=== PATIENT | male | born 1980 | race Hispanic/Latino ===

== ENCOUNTER 2018-12-15 18:38 | Emergency (ER) | payer OTHER ==
[2018-12-15] MEDS ORDERED: ONDANSETRON 4 MG/2 ML VIAL ONE ×2 (19:59→21:40)
[2018-12-15] MEDS ORDERED: FENTANYL CITR 100 MCG/2 ML ONE (19:59)
[2018-12-15] MEDS ORDERED: PANTOPRAZOLE 40 MG INJ ONE (20:00)
[2018-12-15] MEDS ORDERED: NA CHLORIDE 0.9% 1,000 ML ONE ×3 (20:00→22:41)
[2018-12-15] MEDS ORDERED: FAMOTIDINE 20 MG/2 ML VIAL IV ONE (20:00)
--- NOTE | 2018-12-15 20:24 | RAD REPORT ---
EXAM DESCRIPTION: Dariana Single View12/15/2018 8:20 pm CLINICAL HISTORY: Abdominal pain COMPARISON: none FINDINGS: The lungs appear clear of acute infiltrate. The heart is normal size IMPRESSION: No acute abnormalities displayed
[2018-12-15 20:28] LABS: Absolute Lymphocytes (CBC) 1.3 K/uL (0.7-4.9); Lymphocytes % 5.9 % (15.3-44.8)
[2018-12-15 20:29] LABS: Protime INR 0.84
[2018-12-15 20:30] LABS: Basophils % 0.6 % (0-1.3); Hematocrit 50.3 % (39.6-49.0); MPV 8.7 fL (7.6-11.3); RBC Red Blood Cell Count 5.54 M/uL (4.33-5.43)
[2018-12-15 20:47] LABS: Urine Blood 1+ (NEG); Urine Glucose NEGATIVE (NEG); Urine Protein NEGATIVE (NEG); Urine Specific Gravity >1.030 (1.005-1.030); Urine pH 5.5 (5.0-7.0)
[2018-12-15 20:47] LABS: Barbiturates NEGATIVE (NEGATIVE); Benzodiazepines NEGATIVE (NEGATIVE); Cocaine NEGATIVE (NEGATIVE); METHAMPHETAM NEGATIVE (NEGATIVE); Methadone NEGATIVE (NEGATIVE); Opiates NEGATIVE (NEGATIVE); Phencyclidine NEGATIVE (NEGATIVE); THC Cannibis NEGATIVE (NEGATIVE)
[2018-12-15 20:58] LABS: ALT/SGPT 35 U/L (12-78); AST/SGOT 10 U/L (15-37); Albumin 4.4 g/dL (3.4-5.0); Alkaline Phosphatase 170 U/L (45-117); BUN Blood Urea Nitrogen 21 mg/dL (7-18); Bilirubin Direct < 0.1 mg/dL (0-0.2); Bilirubin Total 0.5 mg/dL (0.2-1.0); Lipase 1995 U/L (73-393); Magnesium 2.1 mg/dL (1.8-2.4); NT PRO-BNP 169 pg/mL (<125); Potassium 5.2 mmol/L (3.5-5.1); Protein, Total 9.5 g/dL (6.4-8.2); Sodium Level 130 mmol/L (136-145); Troponin (Emerg Dept Use Only) < 0.02 ng/mL (0.0-0.045)
[2018-12-15 21:00] LABS: Bicarbonate 9 mmol/L (21-32)
[2018-12-15 21:01] LABS: Glucose Level 414 mg/dL (74-106)
[2018-12-15 21:11] LABS: Blood Morphology Comment NOT SEEN (NOT SEEN); Platelet Estimate ADEQ
[2018-12-15 21:38] LABS: Arterial Blood Carboxyhemoglob 1.3 % (0-1.5); Blood Gas Oxyhemoglobin 94.2 % (94-97); Blood O2 Saturation 96.9 % (92-98.5)
[2018-12-15] MEDS ORDERED: MORPHINE 4 MG/ML SYR ONE ×2 (21:40→23:27)
[2018-12-15] MEDS ORDERED: NA CHLORIDE 0.9% 100 ML IV ONE ×2 (22:41→23:07)
[2018-12-15] MEDS ORDERED: INSULIN -REGULAR HUMAN 50 UNIT/0.5 ML ML ONE (22:41)
[2018-12-15] MEDS ORDERED: CEFTRIAXONE/SWI 1gm 1 GM/10 ML SYR ONE ×2 (23:06→23:07)
--- NOTE | 2018-12-15 23:53 | ER ---
Nurse's Notes [facility] Name: Royce Harding Age: 37 yrs Sex: Male : 1980 Arrival Date: 12/15/2018 Time: 18:41 Bed 26 Private MD: Diagnosis: Acute abdominal pain;Acute vomiting;DKA;Leukocytosis Presentation: 12/15 18:58 Presenting complaint: Patient states: generalized abd cramping, nausea, vomiting, and aa5 diarrhea that began last night. Transition of care: patient was not received from another setting of care. Onset of symptoms was December 14, 2018. Risk Assessment: Do you want to hurt yourself or someone else? Patient reports no desire to harm self or others. Care prior to arrival: None. 18:58 Acuity: SUSAN 2 aa5 18:58 Method Of Arrival: Wheelchair aa5 12/16 00:29 Initial Sepsis Screen: Does the patient meet any 2 criteria? RR > 20 per min. ch 00:31 Initial Sepsis Screen: Does the patient have a suspected source of infection?. ch Historical: - Allergies: 12/15 19:00 No Known Allergies; aa5 - PMHx: 19:00 Diabetes - IDDM; Wound to left foot; aa5 - PSHx: 19:00 toe amputation; aa5 - Immunization history:: Adult Immunizations unknown. - Social history:: Smoking status: Patient uses tobacco products, smokes one-half pack cigarettes per day. - Ebola Screening: : No symptoms or risks identified at this time. - Family history:: not pertinent. - Hospitalizations: : No recent hospitalization is reported. Screenin:28 Abuse screen: Denies threats or abuse. Denies injuries from another. Nutritional ch screening: No deficits noted. Tuberculosis screening: No symptoms or risk factors identified. Fall Risk None identified. Assessment: 19:28 General: Appears in no apparent distress. uncomfortable, ill, Behavior is cooperative, ch anxious, fussy. Pain: Complains of pain in back, abdomen and right foot Pain currently is 10 out of 10 on a pain scale. Neuro: No deficits noted. Respiratory: Airway is patent Respiratory effort is even, unlabored, Breath sounds are clear bilaterally. GI: Abdomen is flat, non-distended, Bowel sounds present X 4 quads. Abd is soft X 4 quads Abdomen is tender to palpation X 4 quads. Reports lower abdominal pain, upper abdominal pain, diarrhea, nausea, vomiting. : No signs and/or symptoms were reported regarding the genitourinary system. Derm: Skin is jaundiced. Musculoskeletal: No signs and/or symptoms reported regarding the musculoskeletal system. 20:48 Reassessment: Patient appears in no apparent distress at this time. Patient and/or ch family updated on plan of care and expected duration. Pain level reassessed. Patient is alert, oriented x 3, equal unlabored respirations, skin warm/dry/pink. Patient states symptoms have not improved. 21:43 Reassessment: Patient appears in no apparent distress at this time. Patient and/or ch family updated on plan of care and expected duration. Pain level reassessed. pt medicated per orders. ABG completed, awaiting results. physician notified of pt gap of 26. awaiting further orders after ABG results. Patient states symptoms have not improved. 22:05 Reassessment: Patient appears in no apparent distress at this time. Patient and/or ch family updated on plan of care and expected duration. Pain level reassessed. Patient is alert, oriented x 3, equal unlabored respirations, skin warm/dry/pink. physician aware of ph of 7.13. awaiting orders. 23:08 Reassessment: Patient appears in no apparent distress at this time. pt BGL 418. ch physician notified. pt on insulin drip per physician orders. pt notified of acceptance to [facility]. mom and pt states they do not want to go to [facility]. physician and charge nurse notified, awaiting physician to speak with pt. 23:37 Reassessment: Patient appears in no apparent distress at this time. Patient and/or ch family updated on plan of care and expected duration. Pain level reassessed. Patient is alert, oriented x 3, equal unlabored respirations, skin warm/dry/pink. bgl 373. will re check in 30 min per protocol. pt states he will go to [facility]. awaiting EMS. 23:52 Reassessment: Patient appears in no apparent distress at this time. Patient and/or ch family updated on plan of care and expected duration. Pain level reassessed. physician notified of pt BGL, Insulin rate reduced to 4. pt is asleep in room. Vital Signs: 19:00 BP 162 / 88; Pulse 116; Resp 20 S; Temp 98.9(O); Pulse Ox 99% on R/A; Pain 10/10; aa5 19:28 Pulse 122; Resp 26; Temp 98.5(O); Pulse Ox 99% on R/A; Pain 10/10; ch 19:50 BP 168 / 106; ch 20:48 BP 144 / 93; Pulse 112; Resp 22; Pulse Ox 100% on R/A; Pain 10/10; ch 21:43 BP 164 / 102; Pulse 120; Resp 22; Pulse Ox 97% on R/A; Pain 8/10; ch 23:08 BP 154 / 110; Pulse 114; Resp 22; Pulse Ox 99% on R/A; Pain 8/10; ch ED Course: 18:41 Patient arrived in ED. as 18:58 Arm band placed on. aa5 18:59 Triage completed. aa 19:17 Jazlyn Cerna, RN is Primary Nurse. 19:26 Mitch Reardon MD is Attending Physician. wa 19:28 No apparent distress. Resting quietly. ch 19:28 Patient has correct armband on for positive identification. Placed in gown. Bed in low ch position. Call light in reach. Side rails up X 1. Adult w/ patient. Pulse ox on. NIBP on. Warm blanket given. 19:28 No provider procedures requiring assistance completed. 20:19 XRAY Chest (1 view) In Process Unspecified. EDMS 20:47 Inserted saline lock: 20 gauge in right antecubital area, using aseptic technique. mg2 Blood collected. 22:48 CT Abd/Pelvis - Without Contrast In Process Unspecified. EDMS 0802 00:29 Patient transferred, IV remains in place. ch Administered Medications: 12/15 20:30 Drug: NS 0.9% 1000 ml Route: IV; Rate: 1 bolus; Site: right antecubital; mg2 20:30 Drug: Pepcid 20 mg Route: IVP; Site: right antecubital; mg2 21:21 Follow up: Response: No adverse reaction 20:30 Drug: ProTONIX 40 mg Route: IVP; Site: right antecubital; mg2 21:21 Follow up: Response: No adverse reaction; Pain is decreased 20:30 Drug: Zofran 4 mg Route: IVP; Site: right antecubital; mg2 21:13 Follow up: Response: No adverse reaction ch 21:21 Follow up: Response: No adverse reaction ch 20:30 Drug: fentaNYL (PF) 50 mcg Route: IVP; Site: right antecubital; mg2 21:13 Follow up: Response: No adverse reaction ch 21:45 Drug: morphine 4 mg Route: IVP; Site: right antecubital; mg2 22:34 Follow up: Response: No adverse reaction ch 21:45 Drug: Zofran 4 mg Route: IVP; Site: right antecubital; mg2 22:34 Follow up: Response: No adverse reaction ch 21:46 Drug: NS 0.9% 1000 ml Route: IV; Rate: 1 bolus; Site: right antecubital; mg2 22:45 Drug: Insulin Drip - (Insulin Regular Human 100 units, NS 0.9% 100 ml) {Co-Signature: [facility] (Juanjose Chapman RN).} Route: IV; Rate: 7.5 units/hr; Site: right antecubital; 23:06 Drug: Rocephin - (cefTRIAXone) 2 grams Route: IVPB; Infused Over: 30 mins; Site: right ch antecubital; 23:06 Drug: NS 0.9% 1000 ml Route: IV; Rate: 125 ml/hr; Site: right antecubital; ch 23:38 Drug: morphine 4 mg Route: IVP; Site: right antecubital; ch 23:53 Follow up: Response: No adverse reaction Point of Care Testing: Blood Glucose: 19:05 Blood Glucose: 365 mg/dL; aa5 20:33 Blood Glucose: 370 mg/dL; lt1 12/16 00:23 Blood Glucose: 344 mg/dL; Ranges: Outcome: 12/15 23:53 ER care complete, transfer ordered by . ny 12/16 00:28 Transferred by ground EMS to [facility], Transfer form completed. X-rays sent w/ patient. Condition: stable Instructed on the need for admit. 00:31 Patient left the ED. ch Signatures: Dispatcher [employer] EDMS Jazlyn Cerna RN RN ch Martinez, Amelia as Calderon, Audri, RN RN aa5 Mitch Reardon MD MD wa Gardose, Michele, RN RN [facility] Trinidad Mendoza lt1 Juanjose Chapman RN [facility] Corrections: (The following items were deleted from the chart) 12/15 22:46 22:45 Reassessment: Patient appears in no apparent distress at this time. Patient ch and/or family updated on plan of care and expected duration. Pain level reassessed. Patient is alert, oriented x 3, equal unlabored respirations, skin warm/dry/pink. physician aware of ph of 7.13. awaiting orders ch
--- NOTE | 2018-12-15 23:53 | EDPHYS ---
Physician Documentation [facility] Name: Royce Harding Age: 37 yrs Sex: Male : 1980 Arrival Date: 12/15/2018 Time: 18:41 Bed 26 Private MD: ED Physician Mitch Reardon HPI: 12/16 00:27 This 37 yrs old Male presents to ER via Wheelchair with complaints of wa Vomiting/Diarrhea, Pain All Over. 00:27 The patient presents to the emergency department with nausea, that is moderate, wa vomiting, 10 times since the onset of symptoms, diarrhea, 10 times since the onset of symptoms, abdominal pain, of the abdomen, described as achy, and does not radiate. Onset: The symptoms/episode began/occurred 3 day(s) ago. Possible causes: unknown. The symptoms are aggravated by nothing. The symptoms are alleviated by nothing. Associated signs and symptoms: Pertinent positives: abdominal pain, diarrhea, nausea, vomiting, Pertinent negatives: constipation, dysuria, fever. Severity of symptoms: At their worst the symptoms were moderate in the emergency department the symptoms are worse moderately, Pain is currently a 8 / 10. The patient has not experienced similar symptoms in the past. The patient has not recently seen a physician. h/o DM on insulin. c/o pain in abd. also NV/D x 3 days. Historical: - Allergies: 12/15 19:00 No Known Allergies; aa5 - PMHx: 19:00 Diabetes - IDDM; Wound to left foot; aa5 - PSHx: 19:00 toe amputation; aa5 - Immunization history:: Adult Immunizations unknown. - Social history:: Smoking status: Patient uses tobacco products, smokes one-half pack cigarettes per day. - Ebola Screening: : No symptoms or risks identified at this time. - Family history:: not pertinent. - Hospitalizations: : No recent hospitalization is reported. ROS: 12/16 00:30 Constitutional: Negative for fever, chills, and weight loss, Eyes: Negative for injury, wa pain, redness, and discharge, ENT: Negative for injury, pain, and discharge, Neck: Negative for injury, pain, and swelling, Cardiovascular: Negative for chest pain, palpitations, and edema, Respiratory: Negative for shortness of breath, cough, wheezing, and pleuritic chest pain, Back: Negative for injury and pain, : Negative for injury, bleeding, discharge, and swelling, MS/Extremity: Negative for injury and deformity, Skin: Negative for injury, rash, and discoloration, Neuro: Negative for headache, weakness, numbness, tingling, and seizure, Psych: Negative for depression, anxiety, suicide ideation, homicidal ideation, and hallucinations. Abdomen/GI: Positive for abdominal pain, nausea, vomiting, and diarrhea, Negative for constipation. All other systems are negative. Exam: 00:30 Constitutional: This is a well developed, well nourished patient who is awake, alert, wa and in no acute distress. Head/Face: Normocephalic, atraumatic. Eyes: Pupils equal round and reactive to light, extra-ocular motions intact. Lids and lashes normal. Conjunctiva and sclera are non-icteric and not injected. Cornea within normal limits. Periorbital areas with no swelling, redness, or edema. ENT: Nares patent. No nasal discharge, no septal abnormalities noted. Tympanic membranes are normal and external auditory canals are clear. Oropharynx with no redness, swelling, or masses, exudates, or evidence of obstruction, uvula midline. Mucous membranes moist. Neck: Trachea midline, no thyromegaly or masses palpated, and no cervical lymphadenopathy. Supple, full range of motion without nuchal rigidity, or vertebral point tenderness. No Meningismus. Chest/axilla: Normal chest wall appearance and motion. Nontender with no deformity. No lesions are appreciated. Cardiovascular: Regular rate and rhythm with a normal S1 and S2. No gallops, murmurs, or rubs. Normal PMI, no JVD. No pulse deficits. Respiratory: Lungs have equal breath sounds bilaterally, clear to auscultation and percussion. No rales, rhonchi or wheezes noted. No increased work of breathing, no retractions or nasal flaring. Back: No spinal tenderness. No costovertebral tenderness. Full range of motion. Male : Normal genitalia with no discharge or lesions. Skin: Warm, dry with normal turgor. Normal color with no rashes, no lesions, and no evidence of cellulitis. MS/ Extremity: Pulses equal, no cyanosis. Neurovascular intact. Full, normal range of motion. Neuro: Awake and alert, GCS 15, oriented to person, place, time, and situation. Cranial nerves II-XII grossly intact. Motor strength 5/5 in all extremities. Sensory grossly intact. Cerebellar exam normal. Normal gait. Psych: Awake, alert, with orientation to person, place and time. Behavior, mood, and affect are within normal limits. 00:30 Abdomen/GI: Inspection: abdomen appears normal, Bowel sounds: normal, in all quadrants, Palpation: soft, in all quadrants, moderate abdominal tenderness, in all quadrants, no appreciated organomegaly. Vital Signs: 12/15 19:00 BP 162 / 88; Pulse 116; Resp 20 S; Temp 98.9(O); Pulse Ox 99% on R/A; Pain 10/10; aa5 19:28 Pulse 122; Resp 26; Temp 98.5(O); Pulse Ox 99% on R/A; Pain 10/10; ch 19:50 BP 168 / 106; ch 20:48 BP 144 / 93; Pulse 112; Resp 22; Pulse Ox 100% on R/A; Pain 10/10; ch 21:43 BP 164 / 102; Pulse 120; Resp 22; Pulse Ox 97% on R/A; Pain 8/10; ch 23:08 BP 154 / 110; Pulse 114; Resp 22; Pulse Ox 99% on R/A; Pain 8/10; ch MDM: 19:26 Patient medically screened. sc 12/16 00:31 Differential diagnosis: Nonspecific abd pain, gastritis, cholecystitis, pancreatitis, wa appendicitis, diverticulitis, viral gastroenteritis, DKA. Data reviewed: vital signs, nurses notes, lab test result(s), radiologic studies. 00:43 Test interpretation: by ED physician or midlevel provider: labs noted for DKA. wa leukocytosis. 00:44 Test interpretation: by ED physician or midlevel provider: labs noted for elevated wa lipase. hyperglycemia. hyperkalemia. renal insuff. Response to treatment: the patient's symptoms have mildly improved after treatment. 00:45 Special discussion: no unit bed so pt transferred to [facility]. no bed at [facility]. ED wa course: fluids given. IV abx given. DKA. fluid boluses, maintenance, insulin drip started. 00:48 Test interpretation: by ED physician or midlevel provider: CT abd/pelvis: no acute wa process. 12/15 19:47 Order name: Basic Metabolic Panel; Complete Time: 22:10 sc 12/15 19:47 Order name: CBC with Diff; Complete Time: 22:10 sc 12/15 19:47 Order name: Creatinine for Radiology; Complete Time: 22:10 sc 12/15 19:47 Order name: Hepatic Function; Complete Time: 22:10 sc 12/15 19:47 Order name: Lipase; Complete Time: 22:10 sc 12/15 19:47 Order name: Magnesium; Complete Time: 22:11 sc 12/15 19:47 Order name: NT PRO-BNP; Complete Time: 22:10 sc 12/15 19:47 Order name: PT-INR; Complete Time: 22:11 sc 12/15 19:47 Order name: Troponin (emerg Dept Use Only); Complete Time: 22:11 sc 12/15 19:50 Order name: UDS; Complete Time: 22:11 sc 12/15 20:36 Order name: Manual Differential; Complete Time: 22:11 EDMI 12/15 19:47 Order name: XRAY Chest (1 view); Complete Time: 22:11 sc 12/15 20:37 Order name: Urine Dipstick--Ancillary (enter results); Complete Time: 22:11 [facility] 12/15 20:38 Order name: Glucose, Ancillary Testing; Complete Time: 22:11 EDMS 12/15 20:38 Order name: Glucose, Ancillary Testing; Complete Time: 22:11 EDMI 12/15 21:26 Order name: ABG; Complete Time: 22:10 sc 12/15 22:12 Order name: CT Abd/Pelvis - Without Contrast sc 12/15 23:01 Order name: Glucose, Ancillary Testing; Complete Time: 00:44 EDMS 12/15 23:50 Order name: Glucose, Ancillary Testing; Complete Time: 00:44 EDMS 12/15 19:47 Order name: IV Saline Lock; Complete Time: 20:46 sc 12/15 19:47 Order name: Labs collected and sent; Complete Time: 20:46 sc 12/15 19:47 Order name: EKG; Complete Time: 19:49 sc 12/15 19:47 Order name: Cardiac monitoring; Complete Time: 20:46 sc 12/15 19:47 Order name: EKG - Nurse/Tech; Complete Time: 21:07 sc 12/15 19:47 Order name: O2 Per Protocol; Complete Time: 20:46 sc 12/15 19:47 Order name: O2 Sat Monitoring; Complete Time: : sc Administered Medications: 12/15 20:30 Drug: NS 0.9% 1000 ml Route: IV; Rate: 1 bolus; Site: right antecubital; mg2 20:30 Drug: Pepcid 20 mg Route: IVP; Site: right antecubital; mg2 21:21 Follow up: Response: No adverse reaction ch 20:30 Drug: ProTONIX 40 mg Route: IVP; Site: right antecubital; mg2 21:21 Follow up: Response: No adverse reaction; Pain is decreased ch 20:30 Drug: Zofran 4 mg Route: IVP; Site: right antecubital; mg2 21:13 Follow up: Response: No adverse reaction ch 21:21 Follow up: Response: No adverse reaction ch 20:30 Drug: fentaNYL (PF) 50 mcg Route: IVP; Site: right antecubital; mg2 21:13 Follow up: Response: No adverse reaction ch 21:45 Drug: morphine 4 mg Route: IVP; Site: right antecubital; mg2 22:34 Follow up: Response: No adverse reaction ch 21:45 Drug: Zofran 4 mg Route: IVP; Site: right antecubital; mg2 22:34 Follow up: Response: No adverse reaction ch 21:46 Drug: NS 0.9% 1000 ml Route: IV; Rate: 1 bolus; Site: right antecubital; mg2 22:45 Drug: Insulin Drip - (Insulin Regular Human 100 units, NS 0.9% 100 ml) {Co-Signature: mg2 (Juanjose Chapman RN).} Route: IV; Rate: 7.5 units/hr; Site: right antecubital; 23:06 Drug: Rocephin - (cefTRIAXone) 2 grams Route: IVPB; Infused Over: 30 mins; Site: right ch antecubital; 23:06 Drug: NS 0.9% 1000 ml Route: IV; Rate: 125 ml/hr; Site: right antecubital; ch 23:38 Drug: morphine 4 mg Route: IVP; Site: right antecubital; ch 23:53 Follow up: Response: No adverse reaction Point of Care Testing: Blood Glucose: 19:05 Blood Glucose: 365 mg/dL; aa5 20:33 Blood Glucose: 370 mg/dL; lt1 12/16 00:23 Blood Glucose: 344 mg/dL; Ranges: Critical Glucose Levels:Adult <50 mg/dl or >400 mg/dl <40 mg/dl or >180 mg/dl Disposition: 12/15/18 23:53 Transfer ordered to [facility]. Diagnosis are Acute abdominal pain, Acute vomiting, DKA, Leukocytosis. - Reason for transfer: Higher level of care. - Accepting physician is Dr. Jonathon PENA. - Condition is Stable. - Problem is new. - Symptoms have improved. Critical care time excluding procedures: 00:46 Critical care time: Bedside Care: 15 minutes, Consultation: 10 minutes, Family wa Intervention: 5 minutes. Total time: 30 minutes Signatures: Dispatcher [employer] EDJazlyn Parra, TAMMY RN Liz Farias RN RN Gena Escobar RN RN aa5 Mitch Reardon MD MD wa Gardose, Michele, RN RN mg2 Juanjose Chapman RN mg2 Corrections: (The following items were deleted from the chart) 00:31 12/15 23:53 12/15/2018 23:53 Transfer ordered to [facility]. Diagnosis is Acute ch abdominal pain; Acute vomiting; DKA; Leukocytosis. Reason for transfer: Higher level of care. Accepting physician is Dr. Jonathon PENA. Condition is Stable. Problem is new. Symptoms have improved. wa
--- NOTE | 2018-12-16 12:35 | EKG ---
Test Date: 2018-12-15 Test Time: 20:58:18 Pinion Polisher: [facility]ONT MEASUREMENT RESULTS: Intervals: Rate: 112 [place]: 148 QRSD: 84 QT: 362 QTc: 494 [place]: P: 70 [place]: 148 QRS: 76 T: 51 INTERPRETIVE STATEMENTS: Sinus tachycardia Otherwise normal ECG No previous ECG available for comparison Electronically Signed On 12-16-18 12:32:51 CDT by Jamar Wang
--- NOTE | 2018-12-19 15:08 | RAD REPORT ---
EXAM DESCRIPTION: CT - Abdomen Pelvis Wo Contrast - 12/16/2018 3:09 am CLINICAL HISTORY: Abdominal pain. COMPARISON: None. TECHNIQUE: CT scan of the abdomen and pelvis was performed without IV contrast. This exam was perfor med according to our departmental dose-optimization program, which includes automated exposure contro l, adjustment of the mA and/or kV according to patient size and/or use of iterative reconstruction te chnique. FINDINGS: The lung bases are clear. No pleural or pericardial effusions. Liver, spleen, pancreas, ga llbladder, adrenal glands, and kidneys are normal with simple cysts in both kidneys. There is a punct ate nonobstructing stone in the right kidney. No hydronephrosis. The pelvic organs are also normal. N o small bowel obstruction. The appendix is normal. No evidence of acute diverticulitis. No adenopathy , free fluid, or free air is identified. The aorta is normal caliber. No acute bony findings. IMPRESSION: No acute abdominal or pelvic pathology. Electronically signed by: Luke Arita MD 12/15/2018 11:11 PM CDT Due to temporary technical issues with the PACS/Fluency reporting system, reports are being signed by the in house radiologist as a courtesy to ensure prompt reporting. The interpreting radiologist is f ully responsible for the content of the report.
== END 2018-12-16 00:31 | disposition short-term general hospital (02) ==
LOC: ER 18:38
DX: R11.2 Nausea with vomiting, unspecified (principal); E11.10 Type 2 diabetes mellitus with ketoacidosis without coma; D72.829 Elevated white blood cell count, unspecified; Z79.4 Long term (current) use of insulin; F17.210 Nicotine dependence, cigarettes, uncomplicated
CPT/HCPCS: 93005; 85025; 80048; 36415; 83735; 85610; 82962 ×5; 80076; 80307 ×8; 81003; 84484; 83690; 83880; 74176; 71045; 82805; 96375; 96374; 99285; C9113; J3010; J0696 ×2; J7030 ×3; J2405 ×2